=== PATIENT | male | born 1960 | race Caucasian/White ===

== ENCOUNTER 2024-10-31 20:15 | Emergency (ER) | payer OTHER, MEDICAID ==
[~2024-10-31] VITALS: Ht 177.8 cm; Wt 80.7 kg
[2024-10-31 20:35] LABS: BASOPHILS % (AUTO) 0.6 % (0.0-2.0); EOSINOPHILS % (AUTO) 0.6 % (0.0-6.0); HEMATOCRIT 30 % (39-51); LYMPHOCYTES % (AUTO) 20.3 % (20.0-44.0); MEAN CORPUSCULAR HEMOGLOBIN 32 PG (26.0-33.0); MEAN CORPUSCULAR HGB CONC 34 g/dl (31.0-36.0); MEAN CORPUSCULAR VOLUME 95 fL (80-96); MONOCYTES # (AUTO) 0.3 K/uL (0.1-1.30); NEUTROPHILS # (AUTO) 3.7 K/uL (1.8-8.9); NEUTROPHILS % (AUTO) 72.5 % (43.0-81.0); PLATELET COUNT (AUTO) 207 K/uL (150-450); RED BLOOD CELL COUNT(AUTO) 3.14 MIL/uL (4.5-6.0); RED CELL DISTRIBUTION WIDTH 14.9 % (11.5-15.0); WHITE BLOOD COUNT (AUTO) 5.1 K/uL (4.3-11.0)
[2024-10-31 20:42] LABS: CALCIUM, SERUM 9.3 mg/dL (8.5-10.1); CARBON DIOXIDE 33 mmol/L (21-32); CHLORIDE 99 mmol/L (98-107); CREATININE 4.4 mg/dL (0.6-1.3); GLUCOSE 128 mg/dL (74-106); POTASSIUM 4.1 mmol/L (3.5-5.1); SODIUM SERUM 136 mmol/L (136-145); UREA NITROGEN, BLOOD 29 mg/dL (7-18)
[2024-10-31] MEDS ORDERED: methylPREDNISolone SOD SUCC 125 MG/2ML VIAL ONE (20:47)
[2024-10-31 20:55] LABS: ALANINE AMINOTRANSFERASE 12 U/L (12-78); ALBUMIN 3.7 g/dL (3.4-5.0); ALKALINE PHOSPHATASE 163 U/L (46-116); ASPARTATE AMINOTRANSFERASE 43 U/L (15-37); BILIRUBIN,DIRECT 0.2 mg/dL (0.0-0.2); BILIRUBIN,TOTAL 0.5 mg/dL (0.2-1.0); NT-PRO BNP > 25000 pg/mL (0-125); TOTAL PROTEIN, SERUM 6.7 g/dL (6.4-8.2)
[2024-10-31] MEDS: methylPREDNISolone SOD SUCC 125 MG/2ML VIAL IV ONE (21:00)
[2024-10-31] MEDS ORDERED: ASPIRIN 325 MG TABLET ONE (21:28)
[2024-10-31 21:29] VITALS: O2SAT 96
[2024-10-31] MEDS: IPRATROPIUM NEB FS 0.5 MG/2.5 ML AMPUL.NEB NEB ONE (21:29)
[2024-10-31] MEDS: ALBUTEROL FS 2.5 MG/3 ML VIAL.NEB CONTNEB ONE (21:29)
[2024-10-31] MEDS ORDERED: IPRATROPIUM NEB FS 0.5 MG/2.5 ML AMPUL.NEB ONE (21:31)
[2024-10-31] MEDS ORDERED: ALBUTEROL FS 2.5 MG/3 ML VIAL.NEB ONE (21:31)
[2024-10-31] MEDS: ASPIRIN 325 MG TABLET PO ONE (21:35)
[2024-10-31] MEDS ORDERED: VANCOMYCIN 1 GM /D5W 250 ML PB IV ONE (21:57)
[2024-10-31] MEDS ORDERED: PIPERACI/TAZO 3.375GM/D5W 50ML PB IV ONE (21:57)
[2024-10-31] MEDS: PIPERACILLIN /TAZOBACTAM 3.375 G in IV D5W 50 ML IV ONE (22:03)
[2024-10-31] MEDS: VANCOMYCIN 1 GM in IV D5W 250 ML IV ONE (22:20)
[2024-10-31 22:29] VITALS: O2SAT 99
[2024-11-01 01:37] VITALS: BP 120/55; TEMP 98; O2SAT 93
== END 2024-11-01 01:38 | disposition short-term general hospital (02) ==
LOC: ER 20:29
DX: R06.02 Shortness of breath (principal); R05.9 Cough, unspecified; G20.A1 Parkinson's disease without dyskinesia, without mention of fluctuations; I12.0 Hypertensive chronic kidney disease with stage 5 chronic kidney disease or end stage renal disease; N18.6 End stage renal disease; Z99.2 Dependence on renal dialysis; Z20.822 Contact with and (suspected) exposure to COVID-19
CPT/HCPCS: 99291; 96365; 96375; 87426; 93005; 71045; 84145; 85025; 80048; 87040 ×2; 83605; 80076; 36415; 84484 ×2; 83880; 94644; J2919; J3370 ×2; J2543 ×2; J7060